=== PATIENT | female | born 1960 | race Two or more races ===

== ENCOUNTER 2024-06-17 05:38 | Inpatient (IN) | payer OTHER ==
[2024-06-16 10:23] VITALS: BMI 31.6
[2024-06-17] MEDS ORDERED: MIDAZOLAM HCL 2 MG/2 ML SINGLE DOSE VIAL ONE (09:12)
[2024-06-17] MEDS ORDERED: ROCURONIUM BROMIDE 50 MG/5 ML SYRINGE ONE (09:12)
[2024-06-17] MEDS ORDERED: PROPOFOL 20 ML ONE (09:12)
[2024-06-17] MEDS ORDERED: ACETAMINOPHEN INJECTION 100 ML ONE (10:07)
[2024-06-17] MEDS ORDERED: ONDANSETRON 4 MG/2 ML VIAL IVPUSH PRN ×3 (10:33→12:45)
[2024-06-17] MEDS: ceFAZolin SODIUM 1 GM VIAL IVPB ONE (11:04)
[2024-06-17] MEDS ORDERED: LIDOCAINE HCL 1%, 10 MG/ML (20ML VIAL) ONE (12:27)
[2024-06-17] MEDS ORDERED: SIMETHICONE 80 MG TAB.CHEW (FP) PO PRN (12:45)
[2024-06-17] MEDS ORDERED: DOCUSATE SODIUM 100 MG CAPSULE (FP) PO PRN (12:45)
[2024-06-17] MEDS ORDERED: BISACODYL 5 MG TABLET.DR (FP) PO PRN (12:45)
[2024-06-17] MEDS: CEFAZOLIN 2 GM in DEXTROSE 5%-WATER - 100 ML IVPB ONE (13:30)
[2024-06-17] MEDS: IBUPROFEN 800 MG/8 ML IJ IVPB PRN (17:40)
[2024-06-17 18:13] VITALS: RESP 18
[2024-06-17] MEDS ORDERED: CEFAZOLIN 1 GM/D5W 1 GM/50 ML BAG IVPB SCH (19:00)
[2024-06-17] MEDS: CEFAZOLIN 1 GM in DEXTROSE 5%-WATER - 50 ML IVPB SCH (19:04)
[2024-06-17] MEDS: ACETAMINOPHEN 1000 MG/100 ML BAG IVPB SCH (20:05)
[2024-06-18] MEDS: LACTATED RINGERS SOLUTION 1,000 ML IV SCH (05:53)
[2024-06-18 07:04] LABS: HEMATOCRIT 32.9 % (34.1-44.9); HEMOGLOBIN 10.8 g/dL (11.2-15.7); MCHC 32.8 g/dl (32.2-35.5); MEAN CELL VOLUME 91.9 fl (79.4-94.8); MEAN PLT VOLUME 9.2 fl (9.4-12.3); PLATELET COUNT # 274 x10^3/uL (182-369); RDW 12.5 % (12.4-16.4)
[2024-06-18 07:21] LABS: POTASSIUM 3.7 mmol/L (3.5-5.1)
[2024-06-18 07:22] LABS: CALCIUM 8.4 mg/dL (8.5-10.1)
[2024-06-18 07:23] LABS: BLOOD UREA NITROGEN 14.3 mg/dL (7-18)
[2024-06-18 07:26] LABS: CREATININE 0.7 mg/dL (0.55-1.3)
[2024-06-18 09:26] VITALS: BP 115/60; PULSE 69; TEMP 98.5
[2024-06-18] MEDS: ENOXAPARIN NA (PORCINE) 40 MG/0.4 ML DISP.SYRIN SQ SCH (09:46)
[2024-06-18] MEDS ORDERED: IBUPROFEN 600 MG TABLET (FP) PO PRN ×2 (12:46)
== END 2024-06-18 12:10 | disposition home or self-care (01) | DRG 519 ==
LOC: J2C 05:38 → J3W 15:31
PROVIDERS: ADMIT Specialist; ATTEND Specialist
PROC: 0UT20ZZ Resection of Bilateral Ovaries, Open Approach (ICD-10-PCS; 2024-06-17)
PROC: 0UT70ZZ Resection of Bilateral Fallopian Tubes, Open Approach (ICD-10-PCS; 2024-06-17)
PROC: 0UT90ZZ Resection of Uterus, Open Approach (ICD-10-PCS; principal; 2024-06-17 10:00)
DX: D25.9 Leiomyoma of uterus, unspecified (principal); R10.2 Pelvic and perineal pain
CPT/HCPCS: 36415; 80048; 82962; 85027; 86850; 86900; 86901; 88300-TC; 88305-TC; 88309-TC; 88341-TC; 88342-TC; 94760; J0131